=== PATIENT | male | born 1955 | race American Indian/Alaskan Native ===

== ENCOUNTER 2019-05-21 08:13 | Day surgery (SDC) | payer OTHER ==
[~2019-05-21 08:13] MED LIST: SODIUM CHLORIDE 0.9% 1000 ML 1,000 ML IV SCH
[2019-05-21] MEDS ORDERED: PROPOFOL 200 MG/20 ML VIAL IV ONE ×4 (09:07→09:47)
--- NOTE | 2019-05-21 09:12 | Anesthesia Day of Surgery ---
Anesthesia Day of Surgery - Day of Surgery Patient Examined: Yes Patient H&P Reviewed: Yes Patient is NPO: Yes
--- NOTE | 2019-05-21 09:12 | Anesthesia Consultation ---
Anesthesia Consult and Med Hx Date of service: 05/21/19 - Airway Anesthetic Teeth Evaluation: Poor (multiple missing, loose teeth) ROM Head & Neck: Adequate Mental/Hyoid Distance: Adequate Mallampati Class: Class II Intubation Access Assessment: Probably Good - Pre-Operative Health Status ASA Pre-Surgery Classification: ASA2 Proposed Anesthetic Plan: MAC - Pulmonary Hx Smoking: Yes (former smoker) - Cardiovascular System Hx Hypertension: Yes
--- NOTE | 2019-05-21 10:21 | Procedure Note ---
Date of procedure: 05/21/19 Pre-op diagnosis: Colon Polyp Screening Post-op diagnosis: other (Numerous Colon Polyps (removed from the Rectum,Sigmoid,Descending colon,Proximal Transverse Colon,Ascending Colon and Cecum)) Procedure: Colonoscopy with Hot Snare Polypectomy,Cold Biopsy amd Ablation Anesthesia: MAC Surgeon: AUSTIN JASMINE Estimated blood loss: minimal Pathology: list Specimen disposition: to lab Condition: stable Disposition: same day (Hold aspirin and NSAID and anticoagulants for 4 days; otherwise resume home medication and follow up in 1 to 2 weeks ([phone]).)
--- NOTE | 2019-05-21 10:38 | Operative Report ---
PROCEDURE: Colonoscopy with multiple hot snare polypectomy ablation and cold biopsy done. INDICATIONS: A 63-year-old -[place] gentleman who has never had a colonoscopy done previously. Colonoscopy was done as part of colon polyp screening. DESCRIPTION OF PROCEDURE: Procedure was done after getting informed consent with MAC anesthesia. Initial rectal exam was unremarkable. Instrument was passed through the rectum onto the cecum, which was identified with ileocecal valve and the appendiceal orifice. Visualization was fair to good and there was an abnormal mucosa noted in the cecum, which was ablated using the tip of the polypectomy snare. In the ascending colon, there was a 10-mm polyp that was removed by snare excision and retrieved. There were two 10-11 mm polyp also in the proximal transverse colon that were also removed by a hot snare polypectomy and retrieved. The remaining part of the transverse colon showed normal mucosa. There was a larger descending colon polyp that was removed by snare polypectomy and was removed by as it can go through the suction channel by withdrawing the colonoscope and it was then reintroduced. There was similarly larger polyp in the ascending colon, which was large and also had to be removed by putting it in the suction channel since it was not able to pass and the scope had to be withdrawn and then introduced. The scope was introduced on 3 occasions, first initially and twice later to help remove 2 large polyps. In the sigmoid colon, again there were 2 polyps that were removed by hot snare polypectomy and retrieved and the rectum had multiple small polyps that were removed by cold biopsy and 1 by cold snare polypectomy, possibly hyperplastic in type. There was minimal bleeding associated with the procedure. No complications associated with the procedure and the rectum showed no hemorrhoids on the retroverted view. ASSESSMENT: Colon polyp screening, multiple colon polyps involving the cecum that was ablated ascending colon, proximal colon, transverse colon, descending colon, sigmoid and rectum that were removed with some slight bleeding. There were no internal hemorrhoids. The patient will be asked to avoid aspirin and aspirin-related products for the next few days. Follow up in the office for the next few days, but otherwise resume home medication. Follow up in the office in 1-2 weeks' time. The patient, because of the multitude of polyps that he did have, will require repeat colonoscopy in a year's time. Procedure was done in the GI lab with assistance of the GI lab team, which included MARA Vicente, dany Rucker and with assistance of anesthesia. JOB# [id number] JASON/SAFIA KEENE
[2019-05-21 10:59] VITALS: BP 151/77
[2019-05-21] MEDS ORDERED: WATER FOR IRRIG STERILE 250 ML BOTTLE IR ONE (11:01)
--- NOTE | 2019-05-21 12:13 | Post Anesthesia Evaluation ---
- Post Anesthesia Evaluation Patient Participated: Yes Airway Patent: Yes Stable Respiratory Function: Yes Nausea/Vomiting: No Temp > 96.8F: Yes Pain Manageable: Yes Adequeate Hydration: Yes Anesthesia Complications: No
== END 2019-05-21 08:14 | disposition home or self-care (01) ==
LOC: GIO 08:13
DX: Z12.11 Encounter for screening for malignant neoplasm of colon (principal); D12.4 Benign neoplasm of descending colon; D12.3 Benign neoplasm of transverse colon; I10 Essential (primary) hypertension; Z87.891 Personal history of nicotine dependence; Z79.899 Other long term (current) drug therapy
CPT/HCPCS: 45380; 45385; 88305; J2704; J7030